=== PATIENT | female | born 1995 | race Two or more races ===

== ENCOUNTER 2017-12-28 17:27 | Emergency (ER) | payer MEDICAID ==
[~2017-12-28] VITALS: Ht 162.6 cm; Wt 72.1 kg
[2017-12-28 17:48] VITALS: BP 122/71
[2017-12-28 18:21] LABS: Basophils # (auto) 0 uL; Basophils % (auto) 0.1 % (0.0-2.0); Eosinophils # (auto) 0 uL; Hematocrit 41.4 % (36.0-46.0); Hemoglobin 13.9 g/dL (12.2-16.2); Lymphocytes # (auto) 0.6 uL; Lymphocytes % (auto) 10.2 % (10.0-50.0); Mean Corpuscular Hemoglobin 28.3 pg (28.0-32.0); Mean Corpuscular Hgb Conc. 33.5 g/dL (32.0-36.0); Mean Corpuscular Volume 84.6 fL (80.0-100.0); Monocytes # (auto) 0.3 uL; Monocytes % (auto) 4.7 % (0.0-12.0); Neutrophils # (auto) 5.3 uL; Platelet Count (auto) 300 10^3/uL (140-450); Red Blood Cells 4.89 10^6/uL (4.0-5.20); Red Cell Distribution Width 13.7 % (11.8-14.3); White Blood Cell 6.3 10^3/uL (4.4-10.8)
[2017-12-28 18:41] LABS: Albumin 3.4 g/dL (3.4-5.0); Bilirubin, Total 0.6 mg/dL (0.2-1.0); Calcium 8.8 mg/dL (8.5-10.1); Potassium 3.5 mmol/L (3.5-5.1); Total Protein 7.8 g/dL (6.4-8.2)
== END 2017-12-28 22:32 | disposition left against medical advice (07) ==
LOC: ER 17:30
DX: R10.30 Lower abdominal pain, unspecified (principal); R11.2 Nausea with vomiting, unspecified; Z53.21 Procedure and treatment not carried out due to patient leaving prior to being seen by health care provider
CPT/HCPCS: 36415; 76805; 80053; 84702; 85025

== ENCOUNTER 2019-10-19 12:00 | Emergency (ER) | payer MEDICAID ==
[~2019-10-19] VITALS: Ht 162.6 cm; Wt 70.3 kg
[2019-10-19 13:34] VITALS: BP 135/83
== END 2019-10-19 14:16 | disposition home or self-care (01) ==
LOC: ER 12:10
DX: N39.0 Urinary tract infection, site not specified (principal)
CPT/HCPCS: 81002